=== PATIENT | male | born 1960 ===

== ENCOUNTER 2024-10-17 11:15 | Inpatient (IN) | payer OTHER ==
[~2024-10-17] VITALS: Ht 165.1 cm; Wt 93.4 kg
[2024-10-17 13:12] LABS: BASO % 0.7 % (0.1-1.2); EOS # 0.29 (0.04-0.54); EOS % 5.1 % (0.7-7.0); LYMPH # 1.34 (1.18-3.74); LYMPH % 23.4 % (19.3-53.1); MEAN PLATELET VOLUME 10.80 fl (9.4-12.4); MONO # 0.67 (0.24-0.82); MONO % 11.7 % (4.7-12.5); NEUT # 3.37 (1.56-6.13); NEUT % 58.9 % (34.0-71.1); RED CELL DISTRIBUTION WIDTH 13.1 % (11.6-14.4)
[2024-10-17 13:16] LABS: URINE APPEARANCE Clear; URINE BILIRRUBIN Negative (NEGATIVE); URINE BLOOD Negative; URINE COLOR Yellow; URINE GLUCOSE Negative (NEGATIVE); URINE KETONE Trace (NEGATIVE); URINE LEUKOCYTE Negative; URINE NITRATE Negative; URINE PROTEIN Negative (NEGATIVE); URINE UROBILINOGEN 0.2 E.U./dl
[2024-10-17 13:19] LABS: URINE BACTERIA 17.9 uL (0.0-1933)
[2024-10-17 13:27] LABS: COVID-19 AG NEGATIVE (NEGATIVE)
[2024-10-17] MEDS ORDERED: LOSARTAN-HCTZ1 EAC2 PO (13:30)
[2024-10-17] MEDS ORDERED: LIPITOR20 MG PO (13:30)
[2024-10-17] MEDS ORDERED: METFORMIN HCL1000 M2 PO (13:30)
[2024-10-17] MEDS ORDERED: ACTOS15 MG PO (13:31)
[2024-10-17 13:32] LABS: INR 1.05
[2024-10-17 13:34] LABS: URINE CAST 0.14 uL (0.0-1.40); URINE EPITHELIAL CELLS 1.2 uL (0.0-38.8); URINE RBC 0.2 uL (0.0-20.8); URINE WBC 0.9 uL (0.0-23.2)
[2024-10-17 13:47] VITALS: BP 153/88
[2024-10-17 13:51] LABS: RH POSITIVE
[2024-10-17 14:02] LABS: BUN CREA RATIO 28.0 (7.0-25.0); CREATININE SERUM 1.1 mg/dL (0.70-1.30); GFR 67.18; GLUCOSE FASTING 128.0 mg/dL (65-100); OSMOLALITY SERUM 291.0 MOSM/KG (275-295)
[2024-10-23] MEDS ORDERED: HYDROCHLOROTHIA25 MG (11:17)
[2024-10-23] MEDS ORDERED: LOSARTAN POTAS100 MG (11:17)
[2024-10-23] MEDS ORDERED: ATORVASTATIN CA20 MG (11:18)
[2024-10-23] MEDS ORDERED: PIOGLITAZONE HC15 MG (11:18)
[2024-10-23] MEDS ORDERED: METFORMIN HCL1000 M3 (11:18)
[2024-10-23] MEDS ORDERED: SURGIFLO APPLICATOR 1 EACH APPL TOP ONE (13:30)
[2024-10-23] MEDS ORDERED: ENOXAPARIN SODIUM 40 MG/0.4 ML SYRINGE SUBCUTANEO ONE (13:30)
[2024-10-23] MEDS ORDERED: HEMOSTATIC MATRIX 1 KIT KIT TOP ONE (13:30)
[2024-10-23] MEDS ORDERED: CEFAZOLIN SODIUM 1,000 MG VIAL IV ONE (13:30)
[2024-10-23] MEDS ORDERED: DEXTROSE 50 % IN WATER 0.5 G/ML VIAL IV PRN ×2 (15:00→16:45)
[2024-10-23] MEDS ORDERED: INSULIN LISPRO 1,000 UNIT/10 ML UNITS SUBCUTANEO PRN ×2 (15:00→16:45)
[2024-10-23] MEDS ORDERED: ENALAPRILAT DIHYDRATE 1.25 MG/ML VIAL IV PRN (15:00)
[2024-10-23] MEDS ORDERED: MORPHINE SULFATE 4 MG/ML CARTRIDGE IV PRN (16:45)
[2024-10-23] MEDS ORDERED: ONDANSETRON HCL 2 MG/ML VIAL IV PRN (16:45)
[2024-10-23] MEDS ORDERED: RINGERS SOLUTION,LACTATED 1,000 ML IV SCH (16:45)
[2024-10-23] MEDS ORDERED: GABAPENTIN 300 MG CAPSULE PO SCH (17:00)
[2024-10-23] MEDS ORDERED: POLYETHYLENE GLYCOL 3350 17 GM BLIST.PACK PO SCH (17:00)
[2024-10-23] MEDS ORDERED: ATORVASTATIN CALCIUM 20 MG TABLET PO SCH (17:00)
[2024-10-23] MEDS ORDERED: SUGAMMADEX SODIUM 200 MG/2 ML VIAL IV ONE (17:30)
[2024-10-23] MEDS ORDERED: MORPHINE SULFATE 4 MG/ML VIAL IV ONE (18:10)
[2024-10-23] MEDS ORDERED: FAMOTIDINE/PF 20 MG/2 ML VIAL IV SCH (21:00)
[2024-10-23] MEDS ORDERED: CEFAZOLIN SODIUM 1,000 MG VIAL IV SCH (21:00)
[2024-10-24 01:17] VITALS: BP 114/75; O2SAT 95
[2024-10-24 08:00] VITALS: BP 124/75; O2SAT 95
[2024-10-24] MEDS ORDERED: LOSARTAN/HYDROCHLOROTHIAZIDE 1 TAB TABLET PO SCH (09:00)
[2024-10-24] MEDS ORDERED: ENOXAPARIN SODIUM 40 MG/0.4 ML SYRINGE SUBCUTANEO SCH (09:00)
[2024-10-24] MEDS ORDERED: LOSARTAN POTASSIUM 100 MG TABLET PO SCH (09:00)
[2024-10-24] MEDS ORDERED: HYDROCHLOROTHIAZIDE 25 MG TABLET PO SCH (09:00)
[2024-10-24 09:59] LABS: BASO % 0.2 % (0.1-1.2); EOS # 0.01 (0.04-0.54); EOS % 0.1 % (0.7-7.0); LYMPH # 1.34 (1.18-3.74); LYMPH % 10.1 % (19.3-53.1); MEAN PLATELET VOLUME 10.70 fl (9.4-12.4); MONO # 1.08 (0.24-0.82); MONO % 8.2 % (4.7-12.5); NEUT # 10.72 (1.56-6.13); NEUT % 81.1 % (34.0-71.1); RED CELL DISTRIBUTION WIDTH 12.9 % (11.6-14.4)
[2024-10-24 10:55] LABS: BUN CREA RATIO 15.0 (7.0-25.0); CREATININE SERUM 1.51 mg/dL (0.70-1.30); GFR 46.61; GLUCOSE FASTING 170.0 mg/dL (65-100); OSMOLALITY SERUM 285.0 MOSM/KG (275-295)
[2024-10-24] MEDS ORDERED: 0.9 % SODIUM CHLORIDE 1,000 ML IV ONE (13:15)
== END 2024-10-24 14:51 | disposition home or self-care (01) | DRG 708 ==
LOC: SURH 10-23 07:00 → O/R 10-23 11:02 → SURH 10-23 11:15
PROVIDERS: ADMIT Urology; ATTEND Urology
PROC: 8E0W4CZ Robotic Assisted Procedure of Trunk Region, Percutaneous Endoscopic Approach (ICD-10-PCS; 2024-10-23)
PROC: 0VT04ZZ Resection of Prostate, Percutaneous Endoscopic Approach (ICD-10-PCS; principal; 2024-10-23 07:00)
DX: C61 Malignant neoplasm of prostate (principal)
CPT/HCPCS: 55866; S2900